=== PATIENT | male | born 2000 | race Caucasian/White ===

== ENCOUNTER 2025-02-26 13:03 | Outpatient (RCR) | payer OTHER | END 2025-03-07 | LOC: M ST 13:03 | PROVIDERS: ATTEND Physician Assistant | DX: R47.89 Other speech disturbances (principal) ==

== ENCOUNTER → 2025-06-06 | Outpatient (CLI) | payer OTHER | LOC: M PLAIMG 11:26 | PROVIDERS: ATTEND Physician Assistant Medical | DX: J34.89 Other specified disorders of nose and nasal sinuses (principal) ==